=== PATIENT | female | born 1970 | race Caucasian/White ===

== ENCOUNTER 2016-11-28 19:28 | Emergency (ER) | payer MEDICAID, OTHER ==
[~2016-11-28] VITALS: Ht 167.6 cm; Wt 57.0 kg
[2016-11-29 01:18] VITALS: BP 118/85
== END 2016-11-29 01:20 | disposition home or self-care (01) ==
LOC: ER 19:28
DX: Z04.6 Encounter for general psychiatric examination, requested by authority (principal); F31.9 Bipolar disorder, unspecified
CPT/HCPCS: 99284

== ENCOUNTER 2017-09-20 22:11 | Emergency (ER) | payer OTHER ==
[~2017-09-20] VITALS: Ht 167.6 cm; Wt 72.8 kg
[2017-09-21 02:47] VITALS: BP 100/64
== END 2017-09-21 06:35 | disposition home or self-care (01) ==
LOC: ER 22:11
DX: G47.00 Insomnia, unspecified (principal); F31.9 Bipolar disorder, unspecified
CPT/HCPCS: 81025; 99282